=== PATIENT | female | born 1965 | race Caucasian/White ===

== ENCOUNTER → 2016-09-13 | Outpatient (CLI) | payer OTHER ==
[~2016-09-13] MED LIST: FLUO40CA8 PO; LEVO1TAB35 PO; OMEP40CA41 PO; SIMV10TA2 PO
--- NOTE | 2016-09-13 11:11 | DIAGNOSTIC IMAGING REPORT ---
TEMPOROMANDIBULAR JOINTS 4 VIEWS CLINICAL HISTORY: Right-sided jaw pain. FINDINGS: Lateral views of the temporomandibular joints in the open and closed positions is performed. The skeletal structures are well mineralized. There is no evidence of fracture. No significant degenerative change is seen. There is normal anterior translation of the mandibular condyle on the open-mouth views. IMPRESSION: Unremarkable radiographic assessment of the temporomandibular joints. Electronically signed by: Adis Maldonado M.D. 09/13/2016 11:09 AM Dictated Date/Time: 09/13/2016 11:07 AM
== END | disposition home or self-care (01) ==
LOC: C.RAD 10:29
PROVIDERS: ATTEND Internal Medicine
DX: R68.84 Jaw pain (principal)

== ENCOUNTER → 2017-05-10 | Outpatient (CLI) | payer OTHER ==
--- NOTE | 2017-05-10 08:05 | DIAGNOSTIC IMAGING REPORT ---
FUSION CT SINUSES W/O CLINICAL HISTORY: J32.9 Chronic sinusitis ] sinus pain and pressure COMPARISON STUDY: No previous studies for comparison. FINDINGS: Helical images were acquired in the transverse plane. Coronal and sagittal reformatted images were reviewed. Dose modified CT scanning was performed according to the principles of ALARA There is no evidence of hydrocephalus. No orbital masses are visualized. There is minor mucosal thickening involving the sphenoid sinus, and base of the maxillary sinuses. The ostiomeatal units are patent bilaterally. There is nasal septal deviation to the right. The ethmoid notches are protected. The olfactory grooves measure 4 mm in depth. The frontoethmoidal recesses are patent bilaterally. IMPRESSION: 1. No evidence of acute sinusitis 2. There is mucosal thickening involving the bases of both maxillary sinuses and the sphenoid sinus 3. The ostomy units are patent bilaterally 4. Nasal septal deviation to the right Electronically signed by: Crescencio Velasquez M.D. 05/10/2017 8:03 AM Dictated Date/Time: 05/10/2017 8:00 AM
== END | disposition home or self-care (01) ==
LOC: C.CTS 06:47
DX: J32.9 Chronic sinusitis, unspecified (principal); J34.2 Deviated nasal septum

== ENCOUNTER → 2017-05-20 | Outpatient (CLI) | payer OTHER ==
[2017-05-20 12:24] LABS: BASO % 0.6 %; BASO ABS # 0.03 K/uL (0-0.2); COMPLETE YES; EOS % 4.8 %; HEMATOCRIT 39.1 % (37-47); LYMPH ABS # 2.09 K/uL (1.2-3.4); MEAN CELL VOLUME 94.9 fL (80-100); MEAN CORPUSCULAR HGB CONC 33.8 g/dl (32-36); MEAN PLATELET VOLUME 9.5 fL (7.4-10.4); MONO % 11.2 %; NEUT % 41.4 %; PLATELET COUNT 299 K/uL (130-400); RED BLOOD COUNT 4.12 M/uL (4.2-5.4); WHITE BLOOD COUNT 4.98 K/uL (4.8-10.8)
[2017-05-20 12:32] LABS: URINE APPEARANCE CLEAR (CLEAR); URINE BILIRUBIN NEG (NEG); URINE COLOR YELLOW; URINE NITRITE NEG (NEG); URINE SPECIFIC GRAVITY 1.017 (1.000-1.030); UROBILINOGEN NEG (NEG); ZZUR CULT IF INDIC CLEAN CATCH NO
[2017-05-20 12:36] LABS: MANUAL MICROSCOPIC REQUIRED? NO; REVIEW REQ? NO
[2017-05-20 13:36] LABS: ALT/SGPT 14 U/L (12-78); BLOOD UREA NITROGEN 17 mg/dl (7-18); CALCIUM 9.1 mg/dl (8.5-10.1); CARBON DIOXIDE 24 mmol/L (21-32); CHLORIDE 107 mmol/L (98-107); CHOLESTEROL 198 mg/dl (0-200); CREATININE 0.79 mg/dl (0.60-1.20); GLUCOSE 83 mg/dl (70-99); POTASSIUM 4.1 mmol/L (3.5-5.1); SODIUM 139 mmol/L (136-145); TRIGLYCERIDES 138 mg/dl (0-150); VERY LOW DENSITY LIPOPROT CALC 28 mg/dl
[2017-05-20 13:46] LABS: ALB/GLOB RATIO 0.9 (0.9-2); ALKALINE PHOSPHATASE 94 U/L (45-117); AST/SGOT 15 U/L (15-37); CHOLESTEROL/HDL RATIO 3.8; HDL CHOLESTEROL 52 mg/dl; LDL CHOLESTEROL CALCULATED 118 mg/dl
== END | disposition home or self-care (01) ==
LOC: C.LABBFT 08:18
PROVIDERS: ATTEND Internal Medicine
DX: R42 Dizziness and giddiness (principal); E78.00 Pure hypercholesterolemia, unspecified